=== PATIENT | male | born 1995 | race Two or more races ===

== ENCOUNTER 2019-10-25 22:25 | Emergency (ER) | payer OTHER ==
[~2019-10-25] VITALS: Ht 180.3 cm; Wt 108.9 kg
[2019-10-25 22:30] VITALS: BP 120/76
--- NOTE | 2019-10-25 23:00 | Emergency Room Report ---
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 He presents with complaint of a fall and back injury. This occurred a month ago. He said he slipped on some wet water and landed directly on his buttock. Since then he been having pain to the lower back. He said that if he stands for prolonged period time he felt pain going down his right leg on the thigh area. If he sits for long period time is uncomfortable. Pain is 7 out of 10. Was evaluated over the phone by a Workmen's [employer]. doctor but has not had any studies. No fever chills. No incontinence of bowel or urine. No anesthesia. Denies any other injury. Pain is 8 out of 10. Allergies: Coded Allergies: ACETAMINOPHEN (Verified Allergy, Unknown, 10/25/19) SULFA (SULFONAMIDE ANTIBIOTICS) (Verified Allergy, Unknown, 10/25/19) COVID-19 Screening Contact w/high risk pt: No Experienced COVID-19 symptoms?: No COVID-19 Testing performed PARACHUTE FOLDER: No Patient History Past Medical History: see triage record, old chart reviewed Past Surgical History: none Pertinent Family History: none Social History: Denies: smoking Immunizations: other Reviewed Nursing Documentation: PMH: Agreed; PSxH: Agreed Nursing Documentation-PMH Past Medical History: No Stated History Review of Systems Eye: Denies: eye pain, blurred vision ENT: Denies: ear pain, nose congestion, throat swelling Respiratory: Denies: cough, shortness of breath Cardiovascular: Denies: chest pain, palpitations Gastrointestinal: Denies: abdominal pain, diarrhea, nausea, vomiting Musculoskeletal: Reports: back pain; Denies: joint pain Skin: Denies: rash Neurological: Denies: headache, numbness Endocrine: Denies: increased thirst, increased urine Hematologic/Lymphatic: Denies: easy bruising All Other Systems: negative except mentioned in HPI Physical Exam Vital Signs Date Time Temp Pulse Resp B/P (MAP) Pulse Ox O2 Delivery O2 Flow Rate FiO2 10/25/19 22:28 98.6 87 17 120/76 (91) 95 Room Air Vitals normal Sp02 EP Interpretation: reviewed, normal General Appearance: well appearing, no apparent distress, alert Head: normocephalic, atraumatic Eyes: bilateral eye PERRL, bilateral eye EOMI ENT: hearing grossly normal, normal pharynx Neck: full range of motion, supple, no meningismus Respiratory: chest non-tender, lungs clear, normal breath sounds Cardiovascular #1: regular rate, rhythm, no murmur Gastrointestinal: normal bowel sounds, non tender, no mass, no organomegaly, no bruit, non-distended Musculoskeletal: back normal, normal range of motion, gait/station normal Psychiatric: mood/affect normal Medical Decision Making Diagnostic Impression: Primary Impression: Lumbar strain Qualified Codes: S39.012A - Strain of muscle, fascia and tendon of lower back, initial encounter ER Course This patient presents with a fall and now with back pain for a month. He complained of pain rating down his right leg intermittently. This probably secondary to a pinched nerve. X-ray is unremarkable. If symptoms continue, he may need an MRI. Other X-Ray Diagnostic Results Other X-Ray Diagnostic Results : X-Ray ordered: Lumbar x-rays # of Views/Limited Vs Complete: Complete Indication: Pain EP Interpretation: Yes Interpretation: no dislocation, no soft tissue swelling, no fractures Impression: No acute disease Electronically Signed by: Ortega Jerry MD Last Vital Signs Date Time Temp Pulse Resp B/P (MAP) Pulse Ox O2 Delivery O2 Flow Rate FiO2 10/25/19 22:28 98.6 87 17 120/76 (91) 95 Room Air Status: unchanged Disposition: HOME, SELF-CARE Condition: Stable Scripts Ibuprofen* (MOTRIN*) 600 Mg Tablet 600 MG ORAL Q6H PRN for For Pain, #30 TAB 0 Refills Prov: Ortega Jerry MD 10/25/19 Additional Instructions: No heavy lifting. Follow-up with Workmen's Comp. doctor within a week. You may need an MRI if symptoms continue. You may benefit from physical therapy also. Return if symptoms worsen. Ortega Jerry MD Oct 25, 2019 22:59
[2019-10-25] MEDS ORDERED: IBUPROFEN600 M1 ORAL (23:36)
[2019-10-25 23:40] VITALS: BP 122/85
--- NOTE | 2019-10-26 11:45 | Diagnostic Imaging Report ---
EXAM: X-RAY [facility] CLINICAL HISTORY: Trauma with back pain. COMPARISON: None FINDINGS: Total of the views of the lumbar spine were obtained. Alignment is anatomic. There is no fracture, bony lesions or erosions. Joint spaces are unremarkable. Surrounding soft tissue is normal. IMPRESSION: NO FRACTURE.
== END 2019-10-25 23:40 | disposition home or self-care (01) ==
LOC: EMR 23:04
DX: S39.012A Strain of muscle, fascia and tendon of lower back, initial encounter (principal); W01.0XXA Fall on same level from slipping, tripping and stumbling without subsequent striking against object, initial encounter; Y92.9 Unspecified place or not applicable; Z88.2 Allergy status to sulfonamides; Z88.6 Allergy status to analgesic agent
CPT/HCPCS: 72020; 99283